=== PATIENT | male | born 1960 | race Caucasian/White ===

== ENCOUNTER 2023-10-24 14:00 | Outpatient (RCR) | payer BC, SELFPAY | END 2023-10-24 23:59 | disposition home or self-care (01) | LOC: PRC 14:00 | PROVIDERS: PCP Internal Medicine; Referring Provider Student in an Organized Health Care Education/Training Program; Visit Provider Student in an Organized Health Care Education/Training Program | DX: J84.9 Interstitial pulmonary disease, unspecified (principal) | CPT/HCPCS: 94626 ==

== ENCOUNTER 2023-11-21 14:00 | Outpatient (RCR) | payer BC, SELFPAY | END 2023-11-23 23:59 | disposition home or self-care (01) | LOC: PRC 14:00 | PROVIDERS: PCP Internal Medicine; Referring Provider Student in an Organized Health Care Education/Training Program; Visit Provider Internal Medicine | DX: J84.9 Interstitial pulmonary disease, unspecified (principal) | CPT/HCPCS: 94626 ==

== ENCOUNTER 2023-12-10 13:40 | Outpatient (RCR) | payer BC, SELFPAY | END 2023-12-24 23:59 | disposition home or self-care (01) | LOC: PRC 13:40 | PROVIDERS: PCP Internal Medicine; Referring Provider Student in an Organized Health Care Education/Training Program; Visit Provider Internal Medicine Critical Care Medicine | DX: J84.9 Interstitial pulmonary disease, unspecified (principal) | CPT/HCPCS: 94626 ==

== ENCOUNTER 2025-04-13 15:00 | Outpatient (RCR) | payer SELFPAY ==
[2025-04-06 15:13] VITALS: BP 146/97; PULSE 81; O2SAT 98
[2025-04-08 15:29] VITALS: BP 154/81; PULSE 78; O2SAT 92
[2025-04-13 15:00] VITALS: BP 150/92; PULSE 90; O2SAT 96
[2025-04-15 14:50] VITALS: BP 157/101; PULSE 85; O2SAT 93
[2025-04-15 14:55] VITALS: BP 155/102
[2025-04-15 14:56] VITALS: BP 147/104
[2025-04-15 14:58] VITALS: BP 160/110
--- NOTE | 2025-04-15 15:27 | NUR.NOTE ---
Nursing Note: On Friday04/15/25 at 1450, pt. arrived for [facility] exercise session and pt.'s VS were obtained: HR: 85 / BP: 157/101 (left arm) / O2 Sat.: 93% on room air. Pt. was placed on 4L of oxygen via nasal cannula (switched from his home oxygen machine to the hospital's oxygen tank). Pt. stated that he had had a busy day and that he had rushed in to [facility]. Pt. to sit for five minutes and BP to be rechecked. At 1455, pt.'s BP was 155/102 (left arm). At 1456, pt.'s BP was 147/104 (right arm). RN decided to obtain a manual BP. At 1458, pt.'s BP was 160/110 (left arm). Pt. stated that earlier in the day he was driving to [place] to run some errands for work and he started to feel ...funny, but that when he arrived at his destination, he drank some water and ate a snack and started to feel a little better. Pt. stated that he still feels a little tired though upon arriving at [facility]. Pt. stated that his BP has slowly been increasing. RN called the ED to notify them that the pt. would be coming to triage for further assessment. RN then placed the pt. in a wheelchair and brought him to ED triage.
== END 2025-04-24 23:59 | disposition home or self-care (01) ==
LOC: CR 15:00
PROVIDERS: PCP Internal Medicine; Visit Provider Internal Medicine Cardiovascular Disease
DX: R69 Illness, unspecified (principal)

== ENCOUNTER 2025-04-15 15:00 | Emergency (ER) | payer MEDICARE, SELFPAY ==
[2025-04-15] VITALS (31 sets, daily range): BP systolic 142–178; BP diastolic 105–123; PULSE 74–92; RESP 13–30; TEMP 36.4; O2SAT 92–99
--- NOTE | 2025-04-15 15:00 | RT.EKG_ITS ---
APPROVED REPORT Exam: Resting ECG Reason for Exam: hypertension Patient Location: E HR:77 bpm ECG Measurements Heart Rate 77 AXIS PA 170 P 51 QRSd 106 QRS 6 QT 396 T 12 QTc 450 Conclusion Sinus rhythm...normal P axis, V-rate 60- 99 Incomplete RBBB and LAFB...axis(240,-40), S>R II III aVF No STEMI
--- NOTE | 2025-04-15 15:00 | DI.RAD_ITS ---
Exam(s) XR PORTABLE CHEST AP EXAM: XR PORTABLE CHEST AP CLINICAL HISTORY: dyspnea TECHNIQUE: 2D digital imaging was performed. COMPARISON: No exams were available for comparison FINDINGS: Exam is limited by poor pulmonary inflation overlying monitoring leads. LUNGS: There are underlying fibrotic changes. No definite acute infiltrate. No pleural abnormality seen. HEART: Normal size. AORTA: Normal diameter. BONES: Unremarkable for age. Soft tissues: Unremarkable. IMPRESSION: Fibrotic changes. No definite acute infiltrate. DATA REPOSITORY: RADIATION DOSE DELIVERED:
[2025-04-15 15:37] LABS: Abs Immature Grans 0.03 10^3/uL (0.0-0.06); HCT 41.9 % (40.0-50.0); HGB 14.0 g/dL (13.5-17.5); Immature Grans % 0.4 %; MCH 30.2 pg (27.0-33.0); MCHC 33.4 % (32.0-36.0); MCV 91 fL (80-95); MPV 9.2 fL (8.0-11.0); Platelet Count 233 10^3/uL (130-400); RBC 4.63 10^6/uL (4.36-5.78); RDW 12.9 % (11.8-14.1); RDW-SD 42.2 fL; WBC 7.27 10^3/uL (4.4-10.8)
--- NOTE | 2025-04-15 15:55 | W.ED.GENAD ---
Discharge Plan Disposition Patient Disposition: Home Discharge Details Clinical Impression: Asymptomatic hypertension, Microscopic hematuria, Hypomagnesemia Primary Care Provider: Ana Cooper ED Provider: Mahesh Martel Home Meds and New Rx's Prescriptions: No Action albuterol sulfate 90 mcg/actuation HFA aerosol inhaler 2 puff inhalation Q4H PRN aspirin 81 mg tablet,delayed release (DR/EC) 81 mg PO DAILY atorvastatin 40 mg tablet 40 mg PO DAILY cholecalciferol (vitamin D3) 25 mcg (1,000 unit) capsule 25 mcg PO DAILY ipratropium-albuterol 0.5 mg-3 mg(2.5 mg base)/3 mL solution for nebulization 3 ml inhalation 3XD losartan 25 mg tablet 12.5 mg PO HS metformin 750 mg tablet extended release 24 hr 750 mg PO BID mycophenolate mofetil 500 mg tablet 500 mg PO TID naproxen sodium 220 mg capsule 220 mg PO PRN Ofev 100 mg capsule 100 mg PO Q12H nitroglycerin 0.4 mg tablet, sublingual 0.4 mg sublingual Q5M PRN Rx Instructions: do not exceed 3 doses per episode omeprazole 20 mg capsule,delayed release(DR/EC) 20 mg PO DAILY prednisone 5 mg tablet 5 mg PO DIRECTED Rx Instructions: see taper instructions sildenafil 50 mg tablet 50 mg PO DAILY PRN Rx Instructions: administer 30 minutes to 4 hours before activity Discharge Instructions Instructions: Blood in the urine (hematuria) in adults, Low Magnesium Level (DC), High Blood Pressure ED Additional Instructions: During your emergency department valuation today, you were noted to have elevated blood pressure readings. Chronically high blood pressure or hypertension, cannot be diagnosed in 1 visit to the emergency department. However, it is highly recommended that you follow-up with your primary care to determine if your blood pressures are elevated chronically, as it is highly recommended to start medication to reduce blood pressure as this has been shown to have significant impact in long-term morbidity and mortality for all patients. Please follow-up with your primary care provider regarding your visit to the emergency department today. Be sure to discuss results of all test performed here today to include radiology, and laboratory testing as well as results for any pending cultures. Should your symptoms worsen, or if you develop new concerning symptoms, please return immediately emergency department for further evaluation. Stand Alone Forms: Portal Information Discharge Data Discharge Date/Time-TO BE ENTERED AT DEPARTURE: 04/15/25 17:44 HPI General Date/Time Provider Initiated Documentation: 04/15/25 15:08. HPI Narrative: MDM/Narrative: This 64-year-old male with past medical history of ILD, CAD, presents for evaluation of hypertension. Vital signs notable for hypertension otherwise unremarkable. Exam is within normal limits. Given patient's reported malaise while at cardiac rehab will evaluate for possible ACS/ischemia/infection/metabolic derangement which could explain his symptoms. Although patient does not display any endorgan damage from his hypertension. ED course: Lab work is unremarkable outside of hypomagnesemia microscopic hematuria. Troponins negative x 2. Chest x-ray shows no acute findings other than chronic interstitial disease. Patient remains feeling generally well without complaints maintaining O2 saturations on room air. Will discharge to follow-up primary care Disposition: Home HPI: 64-year-old male with a past medical history of ILD, CAD, presents evaluation of feeling generally unwell while at cardiac rehab today and was noted to be hypertensive. Staff is concerned due to his high blood pressures in the emergency department for further evaluation. Patient states he has been feeling generally unwell with some intermittent nausea over the past few days. 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 Notes that he does have home O2, although he does not typically need to use it when resting and otherwise uses about 4 L via nasal cannula when he is active. Denies any fever, chills, headache, chest pain, changes in vision, changes in speech, numbness, weakness or any other new or concerning symptoms. ROS: Negative besides as mentioned above Exam: Gen: A&O NAD HEENT: NCAT, EOMI, not icteric. External ears normal. No rhinorrhea. Moist mucous membranes. Neck: Supple, full range of motion, no observable masses, No meningeal sign. Lungs: No Respiratory distress. CV: RRR, no edema. Abdomen: Soft, nondistended, No rebound tenderness. MSK: No joint swelling, no redness. Skin: No rashes, petechiae, lesions. Normal color per patient. Neuro: Normal Gait, Grossly intact. Psych: Appropriate for situation. Rhythm: NSR Rate: 77 [place]: Normal axis Intervals: Normal intervals Other findings: No acute ST segment or T wave changes to suggest acute ischemia. Labs: Laboratory Tests Range/Units 04/15/25 04/15/25 04/15/25 15:30 15:56 16:41 WBC (4.4-10.8) 10^3/uL 7.27 RBC (4.36-5.78) 10^6/uL 4.63 Hgb (13.5-17.5) g/dL 14.0 Hct (40.0-50.0) % 41.9 MCV (80-95) fL 91 MCH (27.0-33.0) pg 30.2 MCHC (32.0-36.0) % 33.4 RDW (11.8-14.1) % 12.9 Plt Count (130-400) 10^3/uL 233 MPV (8.0-11.0) fL 9.2 Immature Gran % % 0.4 Neutrophils % % 67.2 Lymphocytes % % 22.7 Monocytes % % 6.6 Eosinophils % % 2.8 Basophils % % 0.3 Nucleated RBC % (0.0-0.3) % 0.0 Absolute Neutrophils (1.2-6.7) 10^3/uL 4.89 Absolute Lymphocytes (1.2-3.4) 10^3/uL 1.65 Absolute Monocytes (0.1-0.8) 10^3/uL 0.48 Absolute Eosinophils (0.0-0.7) 10^3/uL 0.20 Absolute Basophils (0.0-0.2) 10^3/uL 0.02 VBG Lactate (<or=2.0) mmol/L 1.5 Sodium (136-145) mmol/L 143 Potassium (3.5-5.1) mmol/L 3.7 Chloride (98-107) mmol/L 107 Carbon Dioxide (20.0-31.0) mmol/L 26.5 Anion Gap (3-11) mmol/L 9.5 BUN (9-23) mg/dL 14 Creatinine (0.73-1.18) mg/dL 0.67 L Est GFR (CKD-EPI 2020) (mL/min/1.73m2) 118.77 Glucose (74-106) mg/dL 90 Calcium (8.3-10.6) mg/dL 9.1 Magnesium (1.6-2.6) mg/dL 1.2 L Total Bilirubin (0.2-1.2) mg/dL 0.80 AST (<34) U/L 20 ALT (10-49) U/L 18 Alkaline Phosphatase (46-116) U/L 59 Troponin I (<54) ng/L 4 3 NT-Pro-B Natriuret Pep (<300) pg/mL 167 Total Protein (5.7-8.2) g/dL 7.2 Albumin (3.4-5.0) g/dL 4.5 Urine Color (Yellow) Yellow Urine Clarity (Clear) Clear Urine pH (5-8) 6.0 Ur Specific [place] (1.005-1.025) 1.010 Urine Protein (Neg-Trace) mg/dL Negative Urine Ketones (Negative) mg/dL Negative Urine Blood (Negative) Trace-lysed H Urine Nitrite (Negative) Negative Urine Bilirubin (Negative) Negative Urine Urobilinogen (Up to 0.2) mg/dL 1.0 H Ur Leukocyte Esterase (Negative) Negative Urine RBC (0-2) HPF 5-10 H Urine WBC (0-5) HPF Negative Ur Epithelial Cells (Negative) HPF Negative Urine Crystals (Negative) HPF Negative Urine Bacteria (Negative) HPF Negative Urine Casts (Negative) LPF Negative Urine Mucus (Negative) Negative Ur Culture Indicated? No Urine Glucose (Negative) mg/dL Negative Radiology: Exam(s) XR PORTABLE CHEST AP EXAM: XR PORTABLE CHEST AP CLINICAL HISTORY: dyspnea TECHNIQUE: 2D digital imaging was performed. COMPARISON: No exams were available for comparison FINDINGS: Exam is limited by poor pulmonary inflation overlying monitoring leads. LUNGS: There are underlying fibrotic changes. No definite acute infiltrate. No pleural abnormality seen. HEART: Normal size. AORTA: Normal diameter. BONES: Unremarkable for age. Soft tissues: Unremarkable. IMPRESSION: Fibrotic changes. No definite acute infiltrate. Related Data Home Medications Medication Instructions Recorded Confirmed albuterol sulfate 90 mcg/actuation 2 puff inhalation Q4H PRN 09/22/23 04/15/25 aerosol inhaler aspirin 81 mg tablet,delayed 81 mg PO DAILY 09/22/23 04/15/25 release atorvastatin 40 mg tablet 40 mg PO DAILY 09/22/23 04/15/25 cholecalciferol (vitamin D3) 25 25 mcg PO DAILY 09/22/23 04/15/25 mcg (1,000 unit) capsule ipratropium 0.5 mg-albuterol 3 mg 3 ml inhalation 3XD 09/22/23 04/15/25 (2.5 mg base)/3 mL nebulization soln losartan 25 mg tablet 12.5 mg PO HS 09/22/23 04/15/25 metformin 750 mg tablet,extended 750 mg PO BID 09/22/23 04/15/25 release 24 hr mycophenolate mofetil 500 mg tablet 500 mg PO TID 09/22/23 04/15/25 naproxen sodium 220 mg capsule 220 mg PO PRN 09/22/23 04/15/25 nintedanib 100 mg capsule (Ofev) 100 mg PO Q12H 09/22/23 04/15/25 nitroglycerin 0.4 mg sublingual 0.4 mg sublingual Q5M PRN 09/22/23 04/15/25 tablet omeprazole 20 mg capsule,delayed 20 mg PO DAILY 09/22/23 04/15/25 release prednisone 5 mg tablet 5 mg PO DIRECTED 09/22/23 04/15/25 sildenafil 50 mg tablet 50 mg PO DAILY PRN 09/22/23 04/15/25 Allergies Allergy/AdvReac Type Severity Reaction Status Date / Time No Known Allergies Allergy Verified 04/15/25 15:05 General Stated Complaint: GenMedical MARLENE: 3 Course Vital Signs Vital signs: Vital Signs Temperature 36.4 C L 04/15/25 15:01 Pulse 84 04/15/25 15:01 Respiratory Rate 18 04/15/25 15:01 Blood Pressure 142/105 H 04/15/25 15:01 Pulse Oximetry 98 04/15/25 15:01 Temperature 36.4 C L 04/15/25 15:18 Temperature Source Tympanic 04/15/25 15:18 Pulse 81 04/15/25 15:40 Pulse 81 04/15/25 15:40 Respiratory Rate 18 04/15/25 15:40 Respiratory Effort Short of Breath 04/15/25 15:33 Respiratory Depth Normal 04/15/25 15:33 Respiratory Pattern Normal 04/15/25 15:33 Blood Pressure 164/118 H 04/15/25 15:31 Blood Pressure Mean 134 04/15/25 15:31 Pulse Oximetry 95 04/15/25 15:40 Oxygen Delivery Method Nasal Cannula 04/15/25 15:35 Oxygen Flow Rate 4 04/15/25 15:35 Pain Level 0 04/15/25 15:18 Lab/Test Results Lab/Test Results: Laboratory Tests Range/Units 04/15/25 15:30 WBC (4.4-10.8) 10^3/uL 7.27 RBC (4.36-5.78) 10^6/uL 4.63 Hgb (13.5-17.5) g/dL 14.0 Hct (40.0-50.0) % 41.9 MCV (80-95) fL 91 MCH (27.0-33.0) pg 30.2 MCHC (32.0-36.0) % 33.4 RDW (11.8-14.1) % 12.9 Plt Count (130-400) 10^3/uL 233 MPV (8.0-11.0) fL 9.2 Immature Gran % % 0.4 Neutrophils % % 67.2 Lymphocytes % % 22.7 Monocytes % % 6.6 Eosinophils % % 2.8 Basophils % % 0.3 Nucleated RBC % (0.0-0.3) % 0.0 Absolute Neutrophils (1.2-6.7) 10^3/uL 4.89 Absolute Lymphocytes (1.2-3.4) 10^3/uL 1.65 Absolute Monocytes (0.1-0.8) 10^3/uL 0.48 Absolute Eosinophils (0.0-0.7) 10^3/uL 0.20 Absolute Basophils (0.0-0.2) 10^3/uL 0.02 VBG Lactate (<or=2.0) mmol/L 1.5 PFSH All Active Problems (Updated 04/15/25 @ 17:33 by Mahesh Martel MD) Hypomagnesemia (Acute) Microscopic hematuria (Acute) Asymptomatic hypertension (Acute) ILD (interstitial lung disease) (Acute) CAD (coronary artery disease) (Chronic) Hand arthritis (Acute) Family History (Updated 09/22/23 @ 11:38 by Cecilia Woody) Mother Pulmonary fibrosis Social History (Updated 09/22/23 @ 11:40 by Cecilia Woody) Smoking/Tobacco Use Status: Former Tobacco Use tobacco type: cigarettes Pack-years: 40 Tobacco: How many years used: 20 Smoking risk assessment performed?: Yes Alcohol Intake: current Alcohol Intake frequency: holidays/special occasions only Drug use: Never Substance use type: does not use Housing: house 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 Do you feel safe at home: Yes Do you feel safe in your relationship?: Yes
[2025-04-15 15:56] LABS: Magnesium 1.2 mg/dL (1.6-2.6)
[2025-04-15 15:58] LABS: ALT 18 U/L (10-49); AST 20 U/L (<34); Albumin 4.5 g/dL (3.4-5.0); Alkaline Phosphatase 59 U/L (46-116); Anion Gap 9.5 mmol/L (3-11); BUN 14 mg/dL (9-23); Bilirubin, Total 0.80 mg/dL (0.2-1.2); CO2 26.5 mmol/L (20.0-31.0); Calcium 9.1 mg/dL (8.3-10.6); Chloride 107 mmol/L (98-107); Glucose 90 mg/dL (74-106); Potassium 3.7 mmol/L (3.5-5.1); Sodium 143 mmol/L (136-145); Total Protein 7.2 g/dL (5.7-8.2); Troponin I 4 ng/L (<54)
[2025-04-15 16:03] LABS: Glucose Negative (Negative)
[2025-04-15 16:08] LABS: C & S Indicated? No; WBC Negative HPF (0-5)
[2025-04-15] MEDS: Magnesium Oxide 400 MG TAB 800 MG PO (16:09)
[2025-04-15 17:06] LABS: Troponin I 3 ng/L (<54)
== END 2025-04-15 17:44 | disposition home or self-care (01) ==
PROVIDERS: Emergency Provider General Practice; PCP Internal Medicine
DX: R31.29 Other microscopic hematuria (principal); E83.42 Hypomagnesemia; I10 Essential (primary) hypertension
CPT/HCPCS: 99283; 99284; 36415; 80053; 93005; 71045; 81003; 81015; 83605; 83735; 83880; 84484; 85025; 93010

== ENCOUNTER 2025-05-11 15:00 | Outpatient (RCR) | payer SELFPAY ==
[2025-04-29 15:00] VITALS: BP 135/91; PULSE 88; O2SAT 94
[2025-05-06 15:51] VITALS: BP 131/86; PULSE 78; O2SAT 97
== END 2025-05-25 23:59 | disposition home or self-care (01) ==
LOC: CR 15:00
PROVIDERS: PCP Internal Medicine; Visit Provider Internal Medicine Cardiovascular Disease
DX: R69 Illness, unspecified (principal)